=== PATIENT | female | born 1990 | race Caucasian/White ===

== ENCOUNTER → 2016-12-31 | Outpatient (CLI) | payer BC ==
[~2016-12-31] MED LIST: COLACE 100MG C100 MG PO
== END ==
LOC: LAB 08:35
DX: O99.810 Abnormal glucose complicating pregnancy (principal)
CPT/HCPCS: 36415; 82951; 82952

== ENCOUNTER 2017-02-18 15:55 | Inpatient (IN) | payer BC ==
[~2017-02-18] VITALS: Ht 175.3 cm; Wt 103.0 kg
[2017-02-18 16:27] LABS: HEMOGLOBIN 12.5 gm/dl (12.3-15.3); WHITE BLOOD COUNT 4.1 K/UL (4.5-11.0)
[2017-02-21] MEDS ORDERED: COLACE 100MG C100 MG PO (13:31)
== END 2017-02-21 13:27 | disposition home or self-care (01) | DRG 766 ==
LOC: OB 15:55
PROVIDERS: ADMIT Obstetrics & Gynecology
PROC: 10D00Z1 Extraction of Products of Conception, Low, Open Approach (ICD-10-PCS; principal; 2017-02-19 14:50)
DX: O24.425 Gestational diabetes mellitus in childbirth, controlled by oral hypoglycemic drugs (principal); Z3A.38 38 weeks gestation of pregnancy; Z37.0 Single live birth; O76 Abnormality in fetal heart rate and rhythm complicating labor and delivery
CPT/HCPCS: 36415; 81001; 82800; 82962; 85014; 85018; 85025; 90715; C9113; J0690; J1200; J2210; J2270; J2274; J2405; J2550; J2590; J2765; J2795; J3010; J7030